=== PATIENT | female | born 1975 | race Caucasian/White ===

== ENCOUNTER 2021-11-21 16:20 | Emergency (ER) | payer OTHER, SELFPAY ==
[2021-11-21 16:43] VITALS: BP 128/85; PULSE 63; RESP 14; TEMP 36.3; O2SAT 97; BMI 24.3
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
--- NOTE | 2021-11-21 17:11 | CRLHL7_ITS ---
For Patients: As a result of the Cures Act, medical imaging exams and procedure reports are released immediately into your electronic medical record. You may view this report before your referring provider. If you have questions, please contact your health care provider. HISTORY: Palpitations. Shortness of breath. TECHNIQUE: One view of the chest. COMPARISON: No prior. FINDINGS: The heart size and pulmonary vasculature are within normal limits. There is no acute lung infiltrate or pulmonary edema. No pneumothorax or pleural effusion. No acute bony abnormality. IMPRESSION: No acute disease. Dictated by Cristobal Morgan MD @ 11/21/2021 5:44:00 PM Dictated by: Cristobal Morgan MD @ 11/21/2021 17:44:06 (Electronically Signed)
[2021-11-21 18:00] VITALS: BP 105/55; PULSE 98; RESP 14; O2SAT 97
[2021-11-21 18:16] LABS: Basophils Absolute Auto 0.03 K/uL (0.00-0.30); Basophils Percent Auto 0.3 % (0.0-3.0); Eosinophils Absolute Auto 0.05 K/uL (0.00-0.50); Eosinophils Percent Auto 0.6 % (0.0-7.0); Hematocrit 42.9 % (33.0-51.0); Hemoglobin* 14.8 gm/dL (12.0-16.0); Immature Granulocytes Abs Auto 0.01 K/uL (0.00-0.30); Lymphocytes Percent Auto 14.9 % (20-44); Mean Corpuscular HGB Conc 35 gm/dL (32-36); Mean Corpuscular Hemoglobin 31 pg (26-34); Mean Corpuscular Volume 89 fL (80-100); Neutrophils Percent Auto 77.1 % (42.0-72.0); Platelet Count* 228 K/uL (140-440); RDW Coefficient of Variation % 11.4 % (11.5-15.5); Red Blood Count 4.81 m/uL (4.00-5.20); White Blood Count* 8.72 K/uL (4.50-11.00)
[2021-11-21 18:30] LABS: Albumin* 4.6 g/dL (3.3-5.0); Chloride* 103 mmol/L (96-114)
[2021-11-21 18:31] LABS: Potassium* 3.8 mmol/L (3.6-5.1); Sodium* 138 mmol/L (135-149)
[2021-11-21 18:33] LABS: Alkaline Phosphatase* 69 U/L (40-150); Aspartate Amino Transferase* 31 U/L (12-35); Bilirubin Total* 0.3 mg/dL (0.1-1.5); Blood Urea Nitrogen* 20 mg/dL (5-24); Carbon Dioxide* 25 mmol/L (20-32); Creatinine* 0.9 mg/dL (0.5-1.5); Est. Creatinine Clearance* 78.79; Estimated Glomerular Filt Rate 80 ml/min; Total Protein* 7.8 g/dL (6.0-8.3)
[2021-11-21 18:34] LABS: Alanine Aminotransferase* 26 U/L (4-35); Calcium* 9.1 mg/dL (8.4-10.6); Glucose* 102 mg/dL (60-115); Magnesium* 2.2 mg/dL (1.5-2.6)
[2021-11-21 18:37] LABS: D Dimer Quantitative* < 0.27 ug/ml (0.00-0.50); Slide Review Reflex No
[2021-11-21 18:42] LABS: NT Pro B Type NatriureticPept* 57 PG/mL (0-125)
[2021-11-21 18:59] LABS: Troponin I* < 0.01 ng/mL (0.01-0.04)
[2021-11-21 19:00] VITALS: BP 112/79; PULSE 60; RESP 14; O2SAT 96
[2021-11-21 19:20] VITALS: BP 112/79; PULSE 60; RESP 14; TEMP 36.3
== END 2021-11-21 19:30 | disposition home or self-care (01) ==
PROVIDERS: Emergency Provider Family Medicine; PCP Physician Assistant Medical
DX: R06.02 Shortness of breath (principal); R20.0 Anesthesia of skin; R00.2 Palpitations
CPT/HCPCS: 36415; 71045; 80053; 83735; 83880; 84443; 84484; 85025; 85379; 93005; 99284

== ENCOUNTER 2021-12-02 15:40 | Outpatient (CLI) | payer OTHER, SELFPAY | END 2021-12-02 15:41 | disposition home or self-care (01) | LOC: LKVREF 15:40 | PROVIDERS: PCP Physician Assistant Medical; Visit Provider Otolaryngology | DX: G25.81 Restless legs syndrome (principal) | CPT/HCPCS: 82728 ==

== ENCOUNTER 2022-01-13 15:04 | Outpatient (CLI) | payer OTHER, SELFPAY ==
--- NOTE | 2022-01-13 15:20 | CRLHL7_ITS ---
For Patients: As a result of the Century Cures Act, medical imaging exams and procedure reports are released immediately into your electronic medical record. You may view this report before your referring provider. If you have questions, please contact your health care provider. BILATERAL SCREENING MAMMOGRAM WITH COMPUTER-AIDED DETECTION TECHNIQUE: CC and MLO views were obtained. These mammographic images have been obtained using full-field digital technique. These mammographic images were interpreted with the benefit of computer-aided detection. COMPARISON FILM: 09/19/20, 04/24/19, 04/13/18. FINDINGS: The breasts are heterogeneously dense, which may obscure small masses IMPRESSION: There is no radiographic evidence for malignancy. ASSESSMENT: BI-RADS Category 1: Negative RECOMMENDATION: Routine screening mammogram in 1 year. A lay language report of this examination will be provided to the patient. Ajit Chris M.D. Diagnostic Radiologist [email or web address] ELIZABETH/Dictated by: Ajit Chris MD @ 01/14/2022 9:16:00 AM (Electronically Signed)
== END 2022-01-13 15:05 | disposition home or self-care (01) ==
LOC: MAMMO 15:04
PROVIDERS: PCP Physician Assistant Medical; Visit Provider Physician Assistant Medical
DX: Z12.31 Encounter for screening mammogram for malignant neoplasm of breast (principal); R92.2 Inconclusive mammogram
CPT/HCPCS: 77067

== ENCOUNTER 2023-06-14 17:03 | Outpatient (CLI) | payer OTHER, SELFPAY ==
--- NOTE | 2023-06-14 17:20 | MM_ITS ---
Patient: MARIANELA WELLER Facility:?[facility] Patient ID:?[id number] Site Patient ID:?[id number]. Site :?[id number] Study:?XRay-Breast Bilateral 3D screening mammogram w/cad-06/14/2023 5:27:20 PM Ordering Physician:MACARIO Final Report: BILATERAL SCREENING MAMMOGRAM WITH COMPUTER-AIDED DETECTION AND TOMOSYNTHESIS TECHNIQUE: CC and MLO views were obtained. These mammographic images have been obtained using full-field digital technique. These mammographic images were interpreted with the benefit of computer-aided detection. Breast Tomosynthesis was used in this interpretation. COMPARISON FILM: 01/13/22, 09/19/20, 04/24/19. FINDINGS: The breasts are heterogeneously dense, which may obscure small masses. IMPRESSION: There is no radiographic evidence for malignancy. ASSESSMENT: BI-RADS Category 2: Benign RECOMMENDATION: Routine screening mammogram in 1 year. A lay language report of this examination will be provided to the patient. Ajit Chris M.D. Diagnostic Radiologist [email or web address] DSM/sp R& Transcribed: 4:20 p.m. SP/Dictated by: Ajit Chris MD @ 06/15/2023 10:57:00 AM Signed by:?Ajit Chris MD @06/15/2023 4:28:17 PM (Electronic Signature)
== END 2023-06-14 17:04 | disposition home or self-care (01) ==
LOC: MAMMO 17:03
PROVIDERS: PCP Physician Assistant Medical; Visit Provider Physician Assistant Medical
DX: Z12.31 Encounter for screening mammogram for malignant neoplasm of breast (principal); R92.2 Inconclusive mammogram
CPT/HCPCS: 77063; 77067

== ENCOUNTER 2023-08-09 18:19 | Outpatient (CLI) | payer OTHER, SELFPAY | END 2023-08-09 18:20 | disposition home or self-care (01) | PROVIDERS: PCP Physician Assistant Medical; Visit Provider Registered Nurse | DX: R00.2 Palpitations (principal) | CPT/HCPCS: 80053; 84443 ==

== ENCOUNTER 2023-09-13 07:13 | Outpatient (CLI) | payer OTHER, SELFPAY ==
--- NOTE | 2023-09-13 08:39 | W.ANESCHARGE ---
Anesthesia Charges Start Date/Time Anesthesia Start Date: 09/13/23 Anesthesia Start Time: 08:03 Stop Date/Time Anesthesia Stop Date: 09/13/23 Anesthesia Stop Time: 08:37
--- NOTE | 2023-09-13 09:27 | W.ANESCHARGE ---
Anesthesia Charges Start Date/Time Anesthesia Start Date: 09/13/23 Anesthesia Start Time: 08:03 Stop Date/Time Anesthesia Stop Date: 09/13/23 Anesthesia Stop Time: 08:37
== END 2023-09-13 07:14 | disposition home or self-care (01) ==
LOC: OP CLINIC 07:14
PROVIDERS: PCP Physician Assistant Medical; Visit Provider Surgery
DX: Z12.11 Encounter for screening for malignant neoplasm of colon (principal); K63.5 Polyp of colon
CPT/HCPCS: 00811; 45385; 88305; J2704

== ENCOUNTER 2023-11-23 19:12 | Outpatient (CLI) | payer OTHER, SELFPAY ==
--- NOTE | 2023-12-06 12:07 | W.PM.SLEEP ---
Sleep Study Details Details Interpreting Provider: Jonas Date of Sleep Study: 11/23/23 Sleep Study Details: STUDY TYPE:? Home unattended ? BMI:? 25.2 ORDERING PROVIDER:? Jonas INDICATION:? Concern about sleep apnea ? SLEEP SUMMARY:? Monitor time 347.3 minutes RESPIRATORY SUMMARY:? AHI 4.1. Note majority of study was done in the supine position Snoring 56.8% PERIODIC LIMB MOVEMENTS OF SLEEP:? Not recorded CARDIAC:? Range 49-90, mean 57.4 IMPRESSION:? Primary snoring The study is not demonstrate significant obstructive sleep apnea. If sleep disorder is strongly suspected would recommend a repeat study in the sleep lab RECOMMENDATION: See above
== END 2023-11-23 19:13 | disposition home or self-care (01) ==
LOC: SLEEP 19:13
PROVIDERS: PCP Physician Assistant Medical; Visit Provider Otolaryngology
DX: R06.83 Snoring (principal)
CPT/HCPCS: 95806

== ENCOUNTER 2024-04-01 20:20 | Outpatient (CLI) | payer OTHER, SELFPAY ==
--- NOTE | 2024-04-17 08:38 | W.PM.SLEEP ---
Sleep Study Details Details Interpreting Provider: Jonas Date of Sleep Study: 04/01/24 Sleep Study Details: STUDY TYPE:? Multiple sleep latency test performed after an overnight polysomnogram attended ? BMI:? 25.3 ORDERING PROVIDER:? Jonas INDICATION:? Daytime hypersomnolence with a negative home sleep study ? SLEEP SUMMARY:? The patient had 5 nap periods with a mean latency of 3.1 minutes. No REM stage sleep was seen RESPIRATORY SUMMARY:? Not relative PERIODIC LIMB MOVEMENTS OF SLEEP:? Not relevant CARDIAC:? Not relevant IMPRESSION:? This study is positive for daytime hypersomnolence but does not suggest narcolepsy. Note that her overnight study did demonstrate obstructive sleep apnea and therefore this study is a moot point RECOMMENDATION: Would recommend treatment of patient's obstructive sleep apnea.
--- NOTE | 2024-04-17 08:40 | W.PM.SLEEP ---
Sleep Study Details Details Interpreting Provider: Jonas Date of Sleep Study: 04/01/24 Sleep Study Details: STUDY TYPE:? Hospital-based attended ? BMI:? 25.3 ORDERING PROVIDER:Shireen Mcdaniel INDICATION:? Severe daytime hypersomnolence, negative home sleep study ? SLEEP SUMMARY:? 446 minutes total sleep time RESPIRATORY SUMMARY:? AHI 6.2, supine 20.2, nonsupine 2.2. Supine REM AHI 2.6 average duration of apneas was approximately 30 seconds PERIODIC LIMB MOVEMENTS OF SLEEP:? Index 31.6, index with arousal 0 CARDIAC:? Awake 64, asleep 62. No arrhythmias noted IMPRESSION:? Mild obstructive sleep apnea with supine position dependency. Frequent periodic limb movements but none associated with arousal RECOMMENDATION: Would recommend checking serum ferritin if less than 50 treat with supplemental iron. Regarding the sleep apnea treatment options include CPAP, dental appliance and/or airway expansion surgery.
== END 2024-04-01 20:21 | disposition home or self-care (01) ==
PROVIDERS: PCP Physician Assistant Medical; Visit Provider Otolaryngology
DX: G47.33 Obstructive sleep apnea (adult) (pediatric) (principal); G25.81 Restless legs syndrome
CPT/HCPCS: 95805; 95810

== ENCOUNTER 2024-06-25 08:31 | Outpatient (CLI) | payer OTHER, SELFPAY ==
--- NOTE | 2024-06-25 08:45 | CRLHL7_ITS ---
For Patients: As a result of the Century Cures Act, medical imaging exams and procedure reports are released immediately into your electronic medical record. You may view this report before your referring provider. If you have questions, please contact your health care provider. BILATERAL SCREENING MAMMOGRAM WITH COMPUTER-AIDED DETECTION AND TOMOSYNTHESIS TECHNIQUE: CC and MLO views were obtained. These mammographic images have been obtained using full-field digital technique. These mammographic images were interpreted with the benefit of computer-aided detection. Breast Tomosynthesis was used in this interpretation. COMPARISON FILM: 06/14/23, 01/13/22, 09/19/20. FINDINGS: The breasts are heterogeneously dense, which may obscure small masses IMPRESSION: There is no radiographic evidence for malignancy. ASSESSMENT: BI-RADS Category 1: Negative RECOMMENDATION: Routine screening mammogram in 1 year. A lay language report of this examination will be provided to the patient. Ajit Chris M.D. Diagnostic Radiologist [email or web address] RK/talha / bM/Dictated by: Ajit Chris MD @ 07/02/2024 10:29:00 AM (Electronically Signed)
== END 2024-06-25 08:32 | disposition home or self-care (01) ==
PROVIDERS: PCP Physician Assistant Medical; Visit Provider Registered Nurse
DX: Z12.31 Encounter for screening mammogram for malignant neoplasm of breast (principal); R92.333 Mammographic heterogeneous density, bilateral breasts
CPT/HCPCS: 77063; 77067

== ENCOUNTER 2024-08-28 18:22 | Outpatient (CLI) | payer OTHER, SELFPAY ==
[2024-08-28 22:23] LABS: Bacterial Vaginosis* Negative (Negative); Candida glab/krus NOT DETECTED (No Detected); Candida species NOT DETECTED (No Detected); Trichomonas vaginalis NOT DETECTED (No Detected)
[2024-08-28 22:47] LABS: Chlamydia DNA Amplified* NOT DETECTED (No Detected); GC DNA Amplified* NOT DETECTED (No Detected)
== END 2024-08-28 18:23 | disposition home or self-care (01) ==
PROVIDERS: PCP Physician Assistant Medical; Visit Provider Registered Nurse
DX: N93.0 Postcoital and contact bleeding (principal); Z11.3 Encounter for screening for infections with a predominantly sexual mode of transmission; Z13.6 Encounter for screening for cardiovascular disorders
CPT/HCPCS: 80061; 81513; 84443; 87481; 87491; 87591; 87661

== ENCOUNTER 2024-09-11 10:21 | Outpatient (CLI) | payer OTHER, SELFPAY ==
--- NOTE | 2024-09-11 10:45 | CRLHL7_ITS ---
For Patients: As a result of the Century Cures Act, medical imaging exams and procedure reports are released immediately into your electronic medical record. You may view this report before your referring provider. If you have questions, please contact your health care provider. INDICATION: COMPARISON: None. TECHNIQUE: 2D campuzano-scale and color Doppler images were acquired of the pelvis using a transabdominal and transvaginal approach. Transvaginal imaging performed to better visualize the endometrial stripe and ovaries. FINDINGS: Sonographic images demonstrate a normal size and smooth outer contour of the uterus. Uterus measures 9.6 cm in length by 4.4 cm in AP diameter by 5.6 cm in transverse dimension. The myometrium has a normal uniform echotexture. An IUD is present in good position within the endometrial canal. The endometrium measures a proximally 5 millimeters. The right ovary measures 3.2 x 1.5 x 2.0 cm in size and the left ovary measures 4.6 x 3.3 x 3.6 cm. The ovaries demonstrate normal arterial and venous blood flow on color Doppler analysis. There are no suspicious fluid collections within the cul-de-sac. Simple cyst left ovary measures 3.8 x 2.5 x 2.7 cm. IMPRESSION: Normal position of an IUD within the endometrial canal. Simple left ovarian cyst measures 3.8 cm. Dictated by Ajit Chris MD @ 09/11/2024 11:38:42 AM (Electronically Signed)
== END 2024-09-11 10:22 | disposition home or self-care (01) ==
LOC: US 10:21
PROVIDERS: PCP Physician Assistant Medical; Visit Provider Registered Nurse
DX: N93.0 Postcoital and contact bleeding (principal); N83.292 Other ovarian cyst, left side; R14.0 Abdominal distension (gaseous)
CPT/HCPCS: 76830; 76856

== ENCOUNTER 2024-09-24 07:08 | Outpatient (CLI) | payer OTHER, SELFPAY ==
--- NOTE | 2024-09-24 08:21 | P.ANES_ITS ---
Anesthesia Charges Start Date/Time Anesthesia Start Date: 09/24/24 Anesthesia Start Time: 07:53 Stop Date/Time Anesthesia Stop Date: 09/24/24 Anesthesia Stop Time: 08:18 Coding CPT Codes CPT Codes: ANES LWR INTST SCR COLSC - 75495 ([id number]) P1 - NORMAL HEALTHY PATIENT, QK - ELECTRO MECHANICAL TECHNICIAN 2-4 CNCRNT ANES PROC, QX - PROFESSOR OF INDUSTRIAL TECHNOLOGY SVC W/ MED DIRECTION
--- NOTE | 2024-09-24 08:21 | W.ANESCHARGE ---
Anesthesia Charges Start Date/Time Anesthesia Start Date: 09/24/24 Anesthesia Start Time: 07:53 Stop Date/Time Anesthesia Stop Date: 09/24/24 Anesthesia Stop Time: 08:18 Coding CPT Codes CPT Codes: ANES LWR INTST SCR COLSC - 46755 ([id number]) P1 - NORMAL HEALTHY PATIENT, QK - LABOR DELIVERY RN 2-4 CNCRNT ANES PROC, QX - DRAFTING DETAILER SVC W/ MED DIRECTION
--- NOTE | 2024-09-24 08:26 | P.ANES_ITS ---
Anesthesia Charges Start Date/Time Anesthesia Start Date: 09/24/24 Anesthesia Start Time: 07:53 Stop Date/Time Anesthesia Stop Date: 09/24/24 Anesthesia Stop Time: 08:18 Coding CPT Codes CPT Codes: ANES LWR INTST SCR COLSC - 21386 ([id number]) P1 - NORMAL HEALTHY PATIENT, QK - MARKET ANALYST 2-4 CNCRNT ANES PROC, QX - MEDIATOR SVC W/ MED DIRECTION
--- NOTE | 2024-09-24 08:26 | W.ANESCHARGE ---
Anesthesia Charges Start Date/Time Anesthesia Start Date: 09/24/24 Anesthesia Start Time: 07:53 Stop Date/Time Anesthesia Stop Date: 09/24/24 Anesthesia Stop Time: 08:18 Coding CPT Codes CPT Codes: ANES LWR INTST SCR COLSC - 12896 ([id number]) P1 - NORMAL HEALTHY PATIENT, QK - GREEN WARE CASTER 2-4 CNCRNT ANES PROC, QX - FOUNDRY ENGINEER SVC W/ MED DIRECTION
== END 2024-09-24 07:09 | disposition home or self-care (01) ==
LOC: OP CLINIC 07:09
PROVIDERS: PCP Physician Assistant Medical; Visit Provider Internal Medicine
DX: Z12.11 Encounter for screening for malignant neoplasm of colon (principal); Z86.0100 Personal history of colon polyps, unspecified
CPT/HCPCS: 00812; 45378; J2704